=== PATIENT | female | born 1995 | race African-American/Black ===

== ENCOUNTER 2024-07-19 07:19 | Inpatient (IN) | payer OTHER ==
[2024-07-19] MEDS ORDERED: Bicitra 30 ML UDCUP PO PRN (07:33)
[2024-07-19] MEDS ORDERED: hydrALAZINE 20 MG/ML VIAL SLOW IVP PRN (07:33)
[2024-07-19] MEDS ORDERED: Ondansetron PF 4 MG/2 ML Vial IVP PRN (07:33)
[2024-07-19] MEDS ORDERED: Docusate 100 MG CAP PO PRN (07:33)
[2024-07-19] MEDS ORDERED: Famotidine/PF 20 mg/2ml Vial SLOW IVP PRN (07:33)
[2024-07-19] MEDS ORDERED: Misoprostol 200 MCG TAB PR PRN (07:33)
[2024-07-19] MEDS ORDERED: Tranexamic Acid 1,000 MG/10 ML VIAL IVP PRN (07:33)
[2024-07-19] MEDS ORDERED: Promethazine HCl 25 MG/ML VIAL IM PRN (07:33)
[2024-07-19] MEDS ORDERED: CEFAZOLIN 2 GM in Sodium Chloride 0.9% 100 ML IVPB SCH (07:45)
[2024-07-19] MEDS ORDERED: Oxytocin 30 units/NS 500 ML 500 ML IV SCH (07:45)
[2024-07-19] MEDS ORDERED: Lactated Ringer's 1,000 ML IV SCH (07:45)
[2024-07-19 09:32] LABS: Hematocrit 32.5 % (34.9-44.5); Hemoglobin 10.7 g/dL (12.0-15.5); Mean Corpuscular HGB CONC 32.9 g/dL (32.0-36.0); Mean Corpuscular Hemoglobin 28.7 pg (27.0-33.0); Mean Corpuscular Volume 87.1 fL (81.6-98.3); Mean Platelet Volume 9.9 fL (7.4-10.4); Platelet Count 424 10x3/uL (150-450); RBC Distribution Width 13.3 % (11.5-14.5); Red Blood Cell (RBC) Count 3.73 10x6/uL (3.90-5.03); White Blood Cell (WBC) Count 10.8 10x3/uL (3.5-10.5)
[2024-07-19 09:38] LABS: ALT (SGPT) 11 U/L (8-55); AST (SGOT) 13 U/L (5-34); Albumin 2.9 g/dL (3.5-5.0); Alkaline Phosphatase 188 U/L (40-110); Anion Gap 15 mmol/L (10-20); BUN (Urea Nitrogen) 11 mg/dL (7.0-18.7); Bilirubin, Total 0.3 mg/dL (0.2-1.2); Calc. Creatinine Clearance 0 mL/min (70-130); Calcium 9.4 mg/dL (7.8-10.44); Carbon Dioxide 21 mmol/L (22-29); Chloride 106 mmol/L (98-107); Estimated GFR 120; Globulin 4.5 g/dL (2.4-3.5); Glucose 104 mg/dL (70-105); Potassium 3.5 mmol/L (3.5-5.1); Protein, Total 7.4 g/dL (6.0-8.3); Sodium 138 mmol/L (136-145)
[2024-07-19 09:55] LABS: HBsAg Index 0.34 S/CO (0-0.99); Hep B Surf Ag - L&D Non-Reactive S/CO (NonReactive); Syphilis Antibody Nonreactive (Nonreactive); Syphilis Antibody Index 0.06 S/CO (<1.00 Non-Reactive)
[2024-07-19 12:01] LABS: Amphetamine Detected (NotDetected); Barbiturates Screen Not Detected (NotDetected); Benzodiazepine Screen Not Detected (NotDetected); Cocaine Metabolite Screen Not Detected (NotDetected); Methadone Not Detected (NotDetected); Methamphetamine Detected (NotDetected); Opiate Screen Not Detected (NotDetected); Oxycodone Screen Not Detected (NotDetected); Phencyclidine (PCP) Not Detected (NotDetected); THC/Cannabinoid Screen Detected (NotDetected); Tricyclic Screen Not Detected (NotDetected)
[2024-07-19 12:10] LABS: Creatinine, Urine 160.38 mg/dL (47-110)
== END 2024-07-19 09:17 | disposition left against medical advice (07) | DRG 832 ==
LOC: CSHLD 07:19
PROVIDERS: ADMIT Family Medicine; ATTEND Family Medicine
DX: O34.211 Maternal care for low transverse scar from previous cesarean delivery (principal); O99.323 Drug use complicating pregnancy, third trimester; O99.213 Obesity complicating pregnancy, third trimester; Z3A.37 37 weeks gestation of pregnancy; F12.90 Cannabis use, unspecified, uncomplicated
CPT/HCPCS: 80053; 80306; 82570; 84156; 85027; 86780; 86850; 86900; 86901; 87340

== ENCOUNTER 2024-07-20 09:00 | Inpatient (IN) | payer OTHER ==
[2024-07-20] MEDS ORDERED: Docusate 100 MG CAP PO PRN (09:20)
[2024-07-20] MEDS ORDERED: Tranexamic Acid 1,000 MG/10 ML VIAL IVP PRN (09:20)
[2024-07-20] MEDS ORDERED: hydrALAZINE 20 MG/ML VIAL SLOW IVP PRN ×3 (09:20→17:09)
[2024-07-20] MEDS ORDERED: Bicitra 30 ML UDCUP PO PRN (09:20)
[2024-07-20] MEDS ORDERED: Ondansetron PF 4 MG/2 ML Vial IVP PRN ×3 (09:20→13:20)
[2024-07-20] MEDS ORDERED: Misoprostol 200 MCG TAB PR PRN ×2 (09:20→16:47)
[2024-07-20] MEDS ORDERED: Promethazine HCl 25 MG/ML VIAL IM PRN ×2 (09:20→13:20)
[2024-07-20] MEDS ORDERED: Oxytocin 30 units/NS 500 ML 500 ML IV SCH ×2 (09:30→16:47)
[2024-07-20 09:38] VITALS: BMI 41.8
[2024-07-20] MEDS: Lactated Ringer's 1,000 ML IV SCH (09:38)
[2024-07-20] MEDS ORDERED: HYDROmorphone 0.5 MG/0.5 ML SYRINGE SLOW IVP PRN (13:20)
[2024-07-20] MEDS ORDERED: Moisturizing Cream (Eucerin) 113 GM JAR TOP PRN (13:20)
[2024-07-20] MEDS ORDERED: Naloxone HCl 0.4 mg/ml Vial IV PRN (13:20)
[2024-07-20] MEDS ORDERED: diphenhydrAMINE 50 MG/ML VIAL IVP PRN (13:20)
[2024-07-20] MEDS: Famotidine/PF 20 mg/2ml Vial SLOW IVP PRN (13:20)
[2024-07-20] MEDS ORDERED: Naloxone HCl 0.4 mg/ml Vial IVP PRN ×2 (13:20)
[2024-07-20] MEDS ORDERED: Meperidine HCl/PF 25 MG (1 mL) VIAL SLOW IVP PRN (13:20)
[2024-07-20] MEDS: CEFAZOLIN 2 GM in Sodium Chloride 0.9% 100 ML IVPB SCH (13:21)
[2024-07-20] MEDS ORDERED: Communication Order-Pharmacy FS SCH (13:30)
[2024-07-20 14:30] LABS: Amphetamine Detected (NotDetected); Barbiturates Screen Not Detected (NotDetected); Benzodiazepine Screen Not Detected (NotDetected); Cocaine Metabolite Screen Not Detected (NotDetected); Methadone Not Detected (NotDetected); Methamphetamine Detected (NotDetected); Opiate Screen Not Detected (NotDetected); Oxycodone Screen Not Detected (NotDetected); Phencyclidine (PCP) Not Detected (NotDetected); THC/Cannabinoid Screen Detected (NotDetected); Tricyclic Screen Not Detected (NotDetected)
[2024-07-20 14:57] LABS: Analyzer IN Cardio CS NICU; RapidComm Collect By OR NURSE; pH (Cord, venous) 7.257 (7.250-7.350)
[2024-07-20 14:58] LABS: Analyzer IN Cardio CS NICU; RapidComm Collect By OR NURSE
[2024-07-20] MEDS: Ketorolac Tromethamine 30 MG (1 mL) VIAL IVP SCH (16:02)
[2024-07-20] MEDS: fentaNYL 50 mcg/mL 1 mL Vial SLOW IVP PRN (16:13)
[2024-07-20] MEDS ORDERED: Boostrix 0.5 ML (Tdap) VIAL (>/=7 yrs of age) IM ONE (16:47)
[2024-07-20] MEDS: HYDROcodone/Acetaminophen 5/325 mg Tablet PO PRN (17:15)
[2024-07-20 18:51] LABS: Creatinine, Urine 188.36 mg/dL (47-110)
[2024-07-20] MEDS ORDERED: Ketorolac Tromethamine 30 MG (1 mL) VIAL IVP PRN (21:00)
[2024-07-20] MEDS: Ketorolac Tromethamine 30 MG (1 mL) VIAL IVP PRN (23:54)
[2024-07-20] MEDS: Simethicone Chewable 80 MG TAB PO PRN (23:55)
[2024-07-21] MEDS: Oxytocin 10 UNITS/ML VIAL ONE ×2 (06:42→06:44)
[2024-07-21] MEDS: PROPOFOL 20 ML ONE ×2 (06:42→06:44)
[2024-07-21] MEDS: SUCCINYLCHOLINE/SOD CL,ISO/PF 200 MG/10 ML SYRINGE FS ONE (06:43)
[2024-07-21] MEDS: Midazolam HCl 2 mg/2 ml Vial ONE (06:43)
[2024-07-21] MEDS: Ondansetron PF 4 MG/2 ML Vial ONE (06:43)
[2024-07-21] MEDS: Famotidine/PF 20 mg/2ml Vial ONE (06:43)
[2024-07-21] MEDS: fentaNYL 50 mcg/mL 1 mL Vial ONE ×3 (06:43→06:45)
[2024-07-21] MEDS: Dexamethasone 10 MG/ML VIAL ONE (06:43)
[2024-07-21] MEDS: Promethazine HCl 25 MG/ML VIAL ONE (06:44)
[2024-07-21] MEDS: PHENYLEPHRINE-NS 100 MCG/ML 10 ML SYRINGE ONE (06:44)
[2024-07-21] MEDS: Rocuronium Bromide 10 MG/ML (10ML VIAL) ONE (06:44)
[2024-07-21] MEDS: SUGAMMADEX SODIUM 200 MG/2 ML VIAL ONE (06:44)
[2024-07-21] MEDS: Phytonadione Neonatal 1 MG/0.5 ML AMP ONE (06:45)
[2024-07-21] MEDS: Erythromycin Base 0.5% Oint 1 GM TUBE ONE (06:45)
[2024-07-21] MEDS: Ferrous Sulfate 325 MG TAB PO SCH (06:53)
[2024-07-21] MEDS: Prenatal Vitamin 1 TAB PO SCH (08:54)
[2024-07-21] MEDS: Ibuprofen 800 MG TAB PO SCH (20:56)
[2024-07-23] MEDS: Acetaminophen 325 MG TAB PO PRN (09:02)
[2024-07-23] MEDS ORDERED: HYDROcodone/Acetaminophen 5/325 mg Tablet PO PRN (10:31)
[2024-07-23 11:48] VITALS: BP 133/78; TEMP 98.2
[2024-07-23] MEDS ORDERED: Acetaminophen 325 MG TAB PO SCH (13:00)
== END 2024-07-23 13:45 | disposition home or self-care (01) | DRG 787 ==
LOC: CSHLD 09:07 → CSHPP 17:49
PROVIDERS: ADMIT Student in an Organized Health Care Education/Training Program; ATTEND Student in an Organized Health Care Education/Training Program
PROC: 10D00Z1 Extraction of Products of Conception, Low, Open Approach (ICD-10-PCS; principal; 2024-07-20)
DX: O34.211 Maternal care for low transverse scar from previous cesarean delivery (principal); O10.92 Unspecified pre-existing hypertension complicating childbirth; O99.324 Drug use complicating childbirth; O99.214 Obesity complicating childbirth; Z3A.37 37 weeks gestation of pregnancy; Z37.0 Single live birth; J45.909 Unspecified asthma, uncomplicated; E66.811 Obesity, class 1; O99.52 Diseases of the respiratory system complicating childbirth; O99.334 Smoking (tobacco) complicating childbirth; F17.210 Nicotine dependence, cigarettes, uncomplicated; F15.90 Other stimulant use, unspecified, uncomplicated; F12.90 Cannabis use, unspecified, uncomplicated; Z79.899 Other long term (current) drug therapy
CPT/HCPCS: 51702; 76815; 80306; 82570; 82805; 84156; 88307; J1100; J1885; J2250; J2405; J2550; J2590; J2704; J3010; J3490; J7120